=== PATIENT | female | born 1995 | race American Indian/Alaskan Native ===

== ENCOUNTER 2018-05-18 07:57 | Observation (INO) | payer SELFPAY ==
--- NOTE | 2018-05-17 20:50 | Emergency Department Report ---
HPI - General Chief Complaint: Abdominal Pain Time Seen by Provider: 05/17/18 20:35 - HPI HPI: Room 6 The patient is a 22-year-old female presenting with a chief complaint of abdominal pain. Probably 45 minutes prior to arrival patient had sudden onset of left flank and left lower quadrant abdominal pain. Patient is to nausea but denies vomiting. Patient denies dysuria or fever. Patient denies any previous episodes of the same. The patient states she has not had her cycle and approximately 3 months she is normally regular. Location: [See above] Duration: [See above] Quality: Pain Severity: Severe Modifying factors: [see above] Context: [see above] Mode of transportation: [not driving] ED Past Medical Hx - Past Medical History Previous Medical History?: No - Surgical History Past Surgical History?: No - Family History Family history: no significant - Social History Smoking Status: Never Smoker Substance Use Type: None (denies illicit drug use), Alcohol (occasional) ED Review of Systems ROS: Stated complaint: ABD PAIN Other details as noted in HPI Constitutional: denies: fever Eyes: denies: eye pain ENT: denies: throat pain Respiratory: no symptoms reported Cardiovascular: denies: chest pain Endocrine: no symptoms reported Gastrointestinal: abdominal pain, nausea Genitourinary: abnormal menses (missed cycle). denies: dysuria Musculoskeletal: back pain Neurological: denies: headache Physical Exam - Physical Exam Vital Signs: Vital Signs 05/17/18 20:20 Temperature 97.7 F Pulse Rate 70 Respiratory 20 Rate Blood Pressure 105/59 O2 Sat by Pulse 100 Oximetry Physical Exam: GENERAL: The patient is well-developed well-nourished female lying on stretcher and right lateral decubitus position appearing to be in significant pain. [] HEENT: Normocephalic. Atraumatic. Extraocular motions are intact. Patient has moist mucous membranes. NECK: Supple. Trachea midline CHEST/LUNGS: Clear to auscultation. There is no respiratory distress noted. HEART/CARDIOVASCULAR: Regular. There is no tachycardia. There is no gallop rub or murmur. ABDOMEN: Abdomen is soft, with diffuse tenderness to palpation. There is no guarding. Patient has normal bowel sounds. There is no abdominal distention. SKIN: There is no rash. There is no edema. There is no diaphoresis. NEURO: The patient is awake, alert, and oriented. The patient is cooperative. The patient has normal speech MUSCULOSKELETAL: There is left CVA tenderness. There is no evidence of acute injury. ED Course Vital Signs 05/17/18 20:20 Temperature 97.7 F Pulse Rate 70 Respiratory 20 Rate Blood Pressure 105/59 O2 Sat by Pulse 100 Oximetry - Reevaluation(s) Reevaluation #1: 05/17/18 21:28 Patient states she feels great now status post medication. Patient states she is developing a rash on her left arm at the IV site. Appears to be a local reaction. Clint administer Benadryl - Consultations Consultation #1: 05/18/18 00:38 [employer] WORK[employer] paged 05/18/18 01:[address] Marrero- plan to take to OR ED Medical Decision Making - Lab Data Result diagrams: 05/17/18 20:49 05/17/18 20:49 Laboratory Tests 05/17/18 05/17/18 05/17/18 20:49 20:49 20:49 WBC 9.5 RBC 4.25 Hgb 12.5 Hct 38.2 MCV 90 MCH 29 MCHC 33 RDW 13.0 L Plt Count 159 Lymph % (Auto) 28.2 Crane % (Auto) 7.1 Eos % (Auto) 0.8 Baso % (Auto) 0.9 Lymph # 2.7 Crane # 0.7 Eos # 0.1 Baso # 0.1 Seg Neutrophils % 63.0 Seg Neutrophils # 6.0 PT TNR INR TNR APTT TNR Sodium 134 L Potassium 4.1 Chloride 98.6 Carbon Dioxide 18 L Anion Gap 22 BUN 9 Creatinine 0.8 Estimated GFR > 60 BUN/Creatinine Ratio 11 Glucose 109 H Calcium 9.1 Total Bilirubin 0.20 AST 21 ALT 9 Alkaline Phosphatase 84 Total Protein 7.3 Albumin 4.2 Albumin/Globulin Ratio 1.4 HCG, Quant Urine Color Urine Turbidity Urine pH Ur Specific [place] Urine Protein Urine Glucose (UA) Urine Ketones Urine Blood Urine Nitrite Urine Bilirubin Urine Urobilinogen Ur Leukocyte Esterase Urine WBC (Auto) Urine RBC (Auto) U Epithel Cells (Auto) Urine Mucus Urine HCG, Qual 05/17/18 05/17/18 05/17/18 20:49 21:40 21:49 WBC RBC Hgb Hct MCV MCH MCHC RDW Plt Count Lymph % (Auto) Crane % (Auto) Eos % (Auto) Baso % (Auto) Lymph # Cr[place] # Eos # Baso # Seg Neutrophils % Seg Neutrophils # PT 15.0 H INR 1.14 H APTT 23.0 L Sodium Potassium Chloride Carbon Dioxide Anion Gap BUN Creatinine Estimated GFR BUN/Creatinine Ratio Glucose Calcium Total Bilirubin AST ALT Alkaline Phosphatase Total Protein Albumin Albumin/Globulin Ratio HCG, Quant 5055 H Urine Color Yellow Urine Turbidity Clear Urine pH 8.0 H Ur Specific [place] 1.024 Urine Protein 100 mg/dl Urine Glucose (UA) Neg Urine Ketones 20 Urine Blood Neg Urine Nitrite Neg Urine Bilirubin Neg Urine Urobilinogen 2.0 Ur Leukocyte Esterase Sm Urine WBC (Auto) 5.0 Urine RBC (Auto) 1.0 U Epithel Cells (Auto) 12.0 Urine Mucus Few Urine HCG, Qual Positive A - Radiology Data Radiology results: report reviewed (left renal ultrasound, pelvic ultrasound), image reviewed (left renal ultrasound, pelvic ultrasound) [facility] [address] [place] [address] Ultrasound Report Signed Patient: VIOLA LYNN MR#: [id number] : 1995 Acct:[id number] Age/Sex: 22 / F ADM Date: 05/17/18 Loc: ED Attending Dr: Ordering Physician: JANETTE ARMENTA MD Date of Service: 05/17/18 Procedure(s): US renal LT Accession Number(s): [id number] cc: JANETTE ARMENTA MD FINAL REPORT EXAM: US RENAL LT HISTORY: left flank pain COMPARISON: None available. TECHNIQUE: Several real-time grayscale and color Doppler images were obtained. FINDINGS: Trace fluid at the margin of the spleen. Spleen measures 6.8 centimeters in length within normal limits. Left kidney measures 8.9 x 3.3 x 3.5 centimeters. Cortex 1.2 centimeters in thickness. There is vascular flow to the left kidney. No gross focal renal lesion or hydronephrosis. Punctate nonobstructive renal calculus could be obscured by renal sinus fat. Images of the right kidney not obtained. IMPRESSION: No gross focal renal lesion or hydronephrosis on the left. Trace fluid at the margin of the spleen. Transcribed By: LMA Dictated By: GARRISON GODINEZ MD Electronically Authenticated By: GARRISON GODINEZ MD Signed Date/Time: 05/18/1830 DD/ TD/TT: 05/18/1833 [facility] [address] [place] [address] Ultrasound Report Signed Patient: VIOLA LYNN MR#: [id number] : 1995 Acct:[id number] Age/Sex: 22 / F ADM Date: 05/17/18 Loc: ED Attending Dr: Ordering Physician: JANETTE ARMENTA MD Date of Service: 05/17/18 Procedure(s): US OB <= 14 weeks fetus Accession Number(s): [id number] cc: JANETTE ARMENTA MD FINAL REPORT EXAM: US OB lt; = 14 WEEKS FETUS HISTORY: pelvic pain, COMPARISON: None available. TECHNIQUE: Several real-time grayscale and color Doppler images were obtained. Transabdominal exam. Patient declined transvaginal exam. FINDINGS: The uterus measures 8.4 x 5.2 by 4.8 centimeters. Endometrial stripe measures 4 millimeters. No IUP demonstrated. In the left adnexal region there is a soft tissue mass measuring 6.6 x 5.2 x 5.8 centimeters. There is some peripheral vascularity. Left ovary is not visualized separately. Given the patient's history of quantitative beta HCG of grade 2 2000, findings are concerning for ectopic . Small amount of fluid in the pelvis which appears slightly heterogeneous. This is concerning for hemorrhagic fluid and possible rupture left ectopic . Right ovary is not visualized. IMPRESSION: Findings concerning for left adnexal ectopic with possible rupture. Small amount of heterogeneous fluid in the pelvis which may be hemorrhagic. No IUP demonstrated. Findings discussed with Dr. Armenta on May 18, 2018 at 0037 hours EST. Transcribed By: LMA Dictated By: GARRISON GODINEZ MD Electronically Authenticated By: GARRISON GODINEZ MD Signed Date/Time: 05/18/1839 DD/ TD/TT: 05/18/1840 - Differential Diagnosis renal colic, ectopic Critical care attestation.: If time is entered above; I have spent that time in minutes in the direct care of this critically ill patient, excluding procedure time. ED Disposition Clinical Impression: Acute abdominal pain, Ruptured ectopic Disposition: OP ADMIT IP TO THIS HOSP Is pt being admited?: Yes Does the pt Need Aspirin: No Condition: Serious Instructions: Abdominal Pain (ED) Referrals: DORENE MCMAHAN MD [Primary Care Provider] - 3-5 Days Time of Disposition: 01:19 (awaiting OR)
[2018-05-17 21:14] LABS: Basophils # (Auto) 0.1 K/mm3 (0.0-0.1); Basophils % (Auto) 0.9 % (0.0-1.8); Eosinophils # (Auto) 0.1 K/mm3 (0.0-0.4); Eosinophils % (Auto) 0.8 % (0.0-4.3); Hematocrit 38.2 % (30.3-42.9); Hemoglobin 12.5 gm/dl (10.1-14.3); Lymphocytes # (Auto) 2.7 K/mm3 (1.2-5.4); Lymphocytes % (Auto) 28.2 % (13.4-35.0); Mean Corpuscular HGB Conc 33 % (30-34); Mean Corpuscular Volume 90 fl (79-97); Monocytes # (Auto) 0.7 K/mm3 (0.0-0.8); Monocytes % (Auto) 7.1 % (0.0-7.3); Red Blood Count 4.25 M/mm3 (3.65-5.03)
[2018-05-17 21:18] LABS: Platelet Count 159 K/mm3 (140-440)
[2018-05-17 21:36] LABS: Alanine Aminotransferase 9 units/L (7-56); Albumin 4.2 g/dL (3.9-5); BUN/Creatinine Ratio 11; Blood Urea Nitrogen 9 mg/dL (7-17); Calcium 9.1 mg/dL (8.4-10.2); Hemolysis Index 36
[2018-05-17 21:39] LABS: INR TNR (0.87-1.13); Partial Thromboplastin Time TNR Sec. (24.2-36.6)
[2018-05-17 21:54] LABS: Bilirubin,Urine NEG (Negative); Blood,Urine NEG (Negative); Color,Urine Yellow (Yellow); Mucus,Urine FEW /HPF
[2018-05-17 22:06] LABS: HCG Qualitative,Urine Positive (Negative)
[2018-05-17 22:11] LABS: INR 1.14 (0.87-1.13)
--- NOTE | 2018-05-18 00:31 | Ultrasound Report ---
FINAL REPORT EXAM: US RENAL LT HISTORY: left flank pain COMPARISON: None available. TECHNIQUE: Several real-time grayscale and color Doppler images were obtained. FINDINGS: Trace fluid at the margin of the spleen. Spleen measures 6.8 centimeters in length within normal limi ts. Left kidney measures 8.9 x 3.3 x 3.5 centimeters. Cortex 1.2 centimeters in thickness. There is vascu lar flow to the left kidney. No gross focal renal lesion or hydronephrosis. Punctate nonobstructive r enal calculus could be obscured by renal sinus fat. Images of the right kidney not obtained. IMPRESSION: No gross focal renal lesion or hydronephrosis on the left. Trace fluid at the margin of the spleen.
--- NOTE | 2018-05-18 00:40 | Ultrasound Report ---
FINAL REPORT EXAM: US OB <= 14 WEEKS FETUS HISTORY: pelvic pain, COMPARISON: None available. TECHNIQUE: Several real-time grayscale and color Doppler images were obtained. Transabdominal exam. Patient declined transvaginal exam. FINDINGS: The uterus measures 8.4 x 5.2 by 4.8 centimeters. Endometrial stripe measures 4 millimeters. No IUP d emonstrated. In the left adnexal region there is a soft tissue mass measuring 6.6 x 5.2 x 5.8 centimeters. There i s some peripheral vascularity. Left ovary is not visualized separately. Given the patient's history o f quantitative beta HCG of grade 2 2000, findings are concerning for ectopic . Small amount of fluid in the pelvis which appears slightly heterogeneous. This is concerning for hemorrhagic fluid and possible rupture left ectopic . Right ovary is not visualized. IMPRESSION: Findings concerning for left adnexal ectopic with possible rupture. Small amount of heterog eneous fluid in the pelvis which may be hemorrhagic. No IUP demonstrated. Findings discussed with Dr. Gonsalez on May 18, 2018 at 0037 hours EST.
[2018-05-18 02:44] LABS: Basophils % (Auto) 0.3 % (0.0-1.8); Hematocrit 26.9 % (30.3-42.9); Hemoglobin 8.7 gm/dl (10.1-14.3); Lymphocytes # (Auto) 1.4 K/mm3 (1.2-5.4); Mean Corpuscular HGB Conc 32 % (30-34); Mean Corpuscular Volume 90 fl (79-97); Monocytes # (Auto) 0.7 K/mm3 (0.0-0.8); Monocytes % (Auto) 5.3 % (0.0-7.3); Platelet Count 261 K/mm3 (140-440); Red Blood Count 2.99 M/mm3 (3.65-5.03); Red Cell Distribution Width 12.9 % (13.2-15.2)
--- NOTE | 2018-05-18 03:11 | History and Physical Report ---
History of Present Illness Chief complaint: abdominal pain History of present illness: 22yo presents to the ER complaining of LLQ pain found to have 6.6cm left adnexal mass and free fluid suspicious for ruptured ectopic . During observation in the emergency room she became hypotensive SBP 90s. Decision made to proceed to diagnostiic laparoscopy for excision of ectopic based on clinical and laboratory findings. . Past History Past Surgical History: no surgical history Social history: no significant social history - Obstetrical History : 2 Number of Living Children: 1 Medications and Allergies Allergies Allergy/AdvReac Type Severity Reaction Status Date / Time No Known Allergies Allergy Verified 05/17/18 20:19 Active Meds: Active Medications Sodium Chloride (Nacl 0.9% 1000 Ml) 1,000 mls @ 999 mls/hr IV ONCE ONE Stop: 05/18/18 03:58 Last Admin: 05/18/18 03:00 Dose: 999 mls/hr Documented by: Sodium Chloride (Nacl 0.9% 1000 Ml) 1,000 mls @ 999 mls/hr IV ONCE ONE Stop: 05/18/18 04:00 Last Admin: 05/18/18 03:01 Dose: 999 mls/hr Documented by: - Vital Signs Vital signs: Vital Signs Temp Pulse Resp BP Pulse Ox 97.7 F 70 20 105/59 100 05/17/18 20:20 05/17/18 20:20 05/17/18 20:20 05/17/18 20:20 05/17/18 20:20 Temp Pulse Resp BP Pulse Ox 97.7 F 88 15 106/58 100 05/17/18 20:20 05/18/18 02:30 05/18/18 02:30 05/18/18 02:30 05/18/18 02:30 Results Result Diagrams: 05/18/18 02:32 05/17/18 20:49 Abnormal lab results 05/17/18 05/17/18 05/17/18 Range/Units 20:49 20:49 20:49 WBC (4.5-11.0) K/mm3 RBC (3.65-5.03) M/mm3 Hgb (10.1-14.3) gm/dl Hct (30.3-42.9) % RDW 13.0 L (13.2-15.2) % Lymph % (Auto) (13.4-35.0) % Seg Neutrophils % (40.0-70.0) % Seg Neutrophils # (1.8-7.7) K/mm3 PT (12.2-14.9) Sec. INR (0.87-1.13) APTT (24.2-36.6) Sec. Sodium 134 L (137-145) mmol/L Carbon Dioxide 18 L (22-30) mmol/L Glucose 109 H (65-100) mg/dL HCG, Quant 5055 H (0-4) mIU/mL Urine pH (5.0-7.0) Urine HCG, Qual (Negative) Crossmatch 05/17/18 05/17/18 05/18/18 Range/Units 21:40 21:49 01:10 WBC (4.5-11.0) K/mm3 RBC (3.65-5.03) M/mm3 Hgb (10.1-14.3) gm/dl Hct (30.3-42.9) % RDW (13.2-15.2) % Lymph % (Auto) (13.4-35.0) % Seg Neutrophils % (40.0-70.0) % Seg Neutrophils # (1.8-7.7) K/mm3 PT 15.0 H (12.2-14.9) Sec. INR 1.14 H (0.87-1.13) APTT 23.0 L (24.2-36.6) Sec. Sodium (137-145) mmol/L Carbon Dioxide (22-30) mmol/L Glucose (65-100) mg/dL HCG, Quant (0-4) mIU/mL Urine pH 8.0 H (5.0-7.0) Urine HCG, Qual Positive A (Negative) Crossmatch See Detail 05/18/18 Range/Units 02:32 WBC 12.7 H (4.5-11.0) K/mm3 RBC 2.99 L (3.65-5.03) M/mm3 Hgb 8.7 L D (10.1-14.3) gm/dl Hct 26.9 L D (30.3-42.9) % RDW 12.9 L (13.2-15.2) % Lymph % (Auto) 11.0 L (13.4-35.0) % Seg Neutrophils % 83.4 H (40.0-70.0) % Seg Neutrophils # 10.6 H (1.8-7.7) K/mm3 PT (12.2-14.9) Sec. INR (0.87-1.13) APTT (24.2-36.6) Sec. Sodium (137-145) mmol/L Carbon Dioxide (22-30) mmol/L Glucose (65-100) mg/dL HCG, Quant (0-4) mIU/mL Urine pH (5.0-7.0) Urine HCG, Qual (Negative) Crossmatch All other labs normal. Assessment and Plan - Patient Problems (1) Ruptured ectopic Current Visit: Yes Status: Acute Plan to address problem: 2 large bore IV needles Type & Cross 2 units packed red blood cells Ancef IV Proceed to diagnostic laparoscopy to control bleeding, excise of ectopic pregnany. Recommendation discussed with patient. Risks, benefits and alternates to treatment discussed. Informed consent signed. Recommend surgery due to ruptured ectopic and worsening anemia indicative of pelvic hemorrhage.. Proceed to OR.
--- NOTE | 2018-05-18 06:38 | Operative Report ---
Operative Report Operative Report: PRE-OP Diagnosis 1. Ruptured ectopic 2. Anemia POST-OP Diagnosis 1. Ruptured ectopic 2. Anemia 3. Hemoperitoneum 4. Posterior uterine fibroid (small ~1cm) 5. Hydrosalpinx of right fallopian tube 6. Left paratubal simple cyst Procedure 1. Diagnostic laparoscopy converted to Exploratory laparatomy 2. Left partial salpingectomy Surgeon: Dr. Radha Russell Findings 1. Anteverted 8wk uterus 2. Left adnexal mass concerning for ectopic . 3. Hemoperitoneum originating from left fallopian tube. 4. Posterior uterine fibroid 5. Normal bilateral ovaries 6. Paratubal cyst adhered to left fimbriated end of fallopian tube, both adhered to left ovary. (remaining in situ) I/O EBL 600ml Hemoperitoneum 600m (clots and blood) UOP 1100ml clear IVF: 4000ml LR Intra-op Transfusion: 2 units pRBCs. Specimens removed 1. Left fallopian tube, pelvic mass, Anesthesia: General DISPOSITION: Patient extubated and transported to OR in stable condition. INDICTATIONS: 22yo presents to ER with abdominal pain and found to have ruptured left ectopic on ultrasound. She became hypotensive and hemoglobin noted to drop 12-->8 in the ER. The recommendation to proceed to surgical management of ruptured ectopic was discussed with the patient. The risks including but not limited to bleeding, infection, injury to surrounding organs such as bowel, bladder, blood vessels, possible uterine perforation and potential reduced fertility were discussed. The patient was told that one ectopic increases the risk of future ectopic pregnancies. Alternatives and benefits were discussed and informed consent signed. PROCEDURE: The patient was taken to the Main OR in stable condition and placed in the supine position. In anticipation of a possible exploratory laparotomy the patient received Ancef 2g IV. Adequate anesthesia was achieved. SCDs were placed. She was placed in the dorsal lithotomy position in Alan stirrups and prepped and draped in a sterile fashion. A time out was done. A tracy catheter was placed. Attention was turned to the perineum and a sterile speculum was placed per vagina. A single-toothed tenaculum was placed on the anterior lip of the cervix and a balloon uterine manipulator was placed into the uterus. The speculum and tenaculum were removed. Attention was then turned to the abdomen where an infraumbilical incision was made with the scalpel. A 5mm Applied FiOs trocar was then placed through the incision under direct visualization. The CO2 gas flow was placed on 1 as the trocar traversed the tissues into the abdominal cavity. Entry into the peritoneum was achieved with opening pressure of 5 mmHg. The abdomen was insufflated with adequate CO2 gas. The pelvic cavity was noted to be filled with large organized clots. Evidence of active bleeding was noted with bright red blood collecting above the clots. A small LLQ incision was made in the skin and 5mm trocar placed to aid in suction of the hemoperitoneum. Due to the large volume of organized clots and limitation of the suction gift packer to efficiently reduce and remove the clots in the face of active bleeding, the decision was made to convert case to an exploratory laparotomy. Both trocar sites were closed with 4-0 Vicryl. A Pfannesteil incision was made in the skin with the scalpel and carried down to the fascia. The fascia was incised at the midline and incision extended laterally. The fascia was dissected off the rectus muscle at the caudal and cranial end. Entry into the peritoneum was achieved and the incision was extended. An Joselo-O rectractor was placed intraabdominally. The uterine manipulator was removed from the uterus. The right tube cornua was noted to have a hydrosalpinx. The ectopic was noted adhered to the left tube. Left ectopic and source of rupture identified. Cruciate opening made in the left mesosalpinx. Radha clamp placed between left ovary and fallopian tube. Left tube grasped with the Babocks and salpingectomy completed using Ligasure [place] bipolar cautery device. Tubal pedicle noted to be hemostatic. Of note the left fimbriated end of the tube is adhered to the left ovary with a paratubal cyst. Of note, the left fallopian tube was left in tact. The pedicle was noted to be hemostatic. The abdomen was irrigated with normal saline. Any additional peritoneal clots were removed. The peritoneum and rectus muscle was repaired with 2-0 Vicryl. The fascia was closed with 0-Vicryl. The subcutaneous layer was reapproximated with 2-0 Vicryl and the skin was closed with 4-0 Vicryl. I was present and scrubbed for the entire procedure. All counts were correct x 3. Patient was awakened from anesthesia in stable condition and transported to the PACU.
[~2018-05-18 07:57] MED LIST: ANCEF ONE; ANCEF/STERILE WATER 2 GM/20 ML 2 GM/20 ML SYRINGE IV NR; BENADRYL IV ONE; BENADRYL ONE; BLOXIVERZ ONE; DECADRON ONE; DILAUDID ONE; DIPRIVAN 10 MG/ML IV ONE; IBUPROFEN PO PRN; MARCAINE 0.25% INFILTRATI ONE; NACL 0.9% 1000 ML 1,000 ML IV ONE; NACL 0.9% 500 ML 500 ML IV ONE; REGLAN IV ONE; ROBINUL ONE; SUBLIMAZE IV ONE; SUBLIMAZE ONE; TORADOL IV ONE; TORADOL ONE; TYLENOL PO PRN; ZEMURON IV ONE; ZOFRAN IV ONE; ZOFRAN ONE
[2018-05-18] MEDS ORDERED: VASELINE TP ONE (08:45)
[2018-05-18] MEDS: PERCOCET 5/325 PO PRN ×2 (09:35→19:12)
--- NOTE | 2018-05-18 10:49 | Event Note ---
Patient seen and examined post-operatively. She states she is stiff but pain is controlled. Tracy catheter in place. She has tolerated clear liquids. Temp Pulse Resp BP Pulse Ox 97 F L 79 12 110/58 100 05/18/18 06:15 05/18/18 07:15 05/18/18 07:15 05/18/18 07:15 05/18/18 07:15 Incisions (3) Wound dressings clean A 22yo Ruptured ectopic s/p diagnostic lap convereted to exp lap Evaculation of hemoperitoneum Left salpingectomy s/p 2units pRBCs P 1. D/C tracy catheter at noon 2. Encourage ambulation 3. Incentive Spirometer 4. Await bowel status return 5. Draw labs - repeat betahCG, post-transfusion H/H, coags
[2018-05-18] MEDS ORDERED: SODIUM CHLORIDE FLUSH SYRINGE 10 ML IV PRN (11:00)
[2018-05-18] MEDS ORDERED: DILAUDID IV SCH (11:00)
[2018-05-18] MEDS ORDERED: NARCAN 0.4 MG/1 ML IV PRN (11:30)
[2018-05-18] MEDS ORDERED: MYLICON PO PRN (11:30)
[2018-05-18 12:26] LABS: Hematocrit 30.9 % (30.3-42.9); Hemoglobin 10.4 gm/dl (10.1-14.3)
[2018-05-18] MEDS ORDERED: D5LR 1,000 ML IV ONE (12:28)
[2018-05-18] MEDS: DILAUDID IV PRN ×2 (12:30→20:58)
[2018-05-18 12:50] LABS: INR 1.24 (0.87-1.13)
[2018-05-18] MEDS ORDERED: D5LR 1,000 ML IV SCH (13:00)
[2018-05-18] MEDS ORDERED: MILK OF MAGNESIA PO PRN (22:00)
--- NOTE | 2018-05-19 13:47 | Progress Note ---
Assessment and Plan - Patient Problems (1) Ruptured ectopic Current Visit: Yes Status: Acute (2) H/O unilateral salpingectomy Current Visit: Yes Status: Acute (3) Hemoperitoneum Current Visit: Yes Status: Acute (4) H/O exploratory laparotomy Current Visit: Yes Status: Acute Plan to address problem: Continue postop care. OB to ambulate. August d/c home in AM. Subjective - Subjective Date of service: 05/19/18 Principal diagnosis: S/P expl lap for ruptured ectopic. Interval history: Patient is S/P diagnostic laparoscopy converted to exploratory laparotomy, POD#1. She also receievd 2 units PRBCs. Her current Hb is 10. She denies any dizziness or palpitation. She passed flatus. She is tolerating regular diet well. Objective - Vital Signs Latest vital signs: Vital Signs Temp Pulse Resp BP BP Pulse Ox 05/19/18 09:40 98.8 F 81 18 104/60 100 05/19/18 05:37 98.4 F 95 H 18 105/61 99 05/18/18 23:51 98.6 F 74 18 105/45 100 05/18/18 20:53 98.6 F 92 H 18 106/55 100 05/18/18 15:25 98.7 F 88 20 101/60 Intake and Output 05/18/18 05/19/18 05/19/18 23:59 07:59 15:59 Intake Total 120 600 Output Total 1000 300 Balance -880 -300 600 Intake: Oral 120 600 Output: Urine 1000 300 Void 1000 300 Other: Total, Intake Amount 120 120 Total, Output Amount 200 300 Voiding Method Toilet # Voids Void 2 1 - Exam Cardiovascular: Present: Normal S1, Normal S2 Lungs: Present: Clear to auscultation Vulva: both: normal Deep Tendon Reflex Grade: Normal +2 - Labs Labs: Abnormal lab results 05/18/18 Range/Units 01:10 Crossmatch See Detail
[2018-05-19] MEDS: PERCOCET 5/325 PO PRN ×2 (17:46→23:12)
[2018-05-20] MEDS: PERCOCET 5/325 PO PRN (05:32)
[2018-05-20 10:24] LABS: INR 1.09 (0.87-1.13)
[2018-05-20 10:25] LABS: Partial Thromboplastin Time 29.7 Sec. (24.2-36.6)
--- NOTE | 2018-05-20 13:36 | Discharge Summary ---
Providers - Providers Date of Admission: 05/18/18 08:12 Attending physician: LANCE ESCOBAR Primary care physician: DORENE MCMAHAN Hospitalization Reason for admission: other (abdominal pain) Delivery: other Procedure: other (1) diagnostic laparoscopy converted to exploratory laparotomy 2) partial left salpingectomy 3) evacuation of hemoperitoneium) Discharge diagnosis: other (ectopic ) Hospital course: 22yo presents w abdominal pain found to have ruptured ectopic tubal . She underwent a 1) diagnostic laparoscopy converted to exploratory laparotomy 2) partial left salpingectomy 3) evacuation of hemoperitoneium. The laparoscopy was converted due to large volume of intraabdominal hemorrhage ~1L of clots and blood. On POD#2 she was ambulating without difficulty, passing flatus, tolerating PO and urinating without difficulty. Her pathology reveals trophoblastic tissue and left benign fallopian tube. Her BCHG trended down 5055-->730K post-operatively She was discharged home in stable condition to return to clinic weekly for repeat betHCG at [facility]. Condition at discharge: Stable Disposition: DC- TO HOME OR SELFCARE - Discharge Diagnoses (1) Ruptured ectopic Status: Acute Plan - Discharge Medications Prescriptions: RX: Ferrous Sulfate [Feosol 325 MG tab] 325 mg PO BID 30 Days #60 tablet oxyCODONE /ACETAMINOPHEN [Percocet 5/325] 1 tab PO Q4HR PRN 14 Days #30 tab PRN Reason: Pain , Severe (7-10) - Provider Discharge Summary Activity: no sex for 6 weeks, no heavy lifting 4 weeks, no strenuous exercise Additional instructions: [] Smoking cessation referral if applicable(refer to patient education folder for contact #) [] Refer to [facility] Booklet Call your doctor immediately for: * Fever > 100.5 * Heavy vaginal bleeding ( >1 pad per hour) * Severe persistent headache * Shortness of breath * Reddened, hot, painful area to leg or breast * Drainage or odor from incision. * Keep incision clean and dry at all times and follow doctor's instructions regarding bathing/showering Return to clinic with Dr. Escobar weekly for serial betaHCG labs. - Follow up plan Follow up: DORENE MCMAHAN MD [Primary Care Provider] - 3-5 Days
[2018-05-22 11:24] VITALS: BP 116/74
== END 2018-05-20 16:00 | disposition home or self-care (01) ==
LOC: OR 07:57 → OB 08:12
PROVIDERS: ADMIT Obstetrics & Gynecology; ATTEND Obstetrics & Gynecology
DX: O00.90 Unspecified ectopic pregnancy without intrauterine pregnancy (principal); O99.019 Anemia complicating pregnancy, unspecified trimester; O34.10 Maternal care for benign tumor of corpus uteri, unspecified trimester
CPT/HCPCS: 36415; 36430; 59151; 76775; 76801; 80053; 81001; 81025; 84702; 85014; 85018; 85025; 85610; 85730; 86850; 86900; 86901; 86920; 88305; 96374; 96375; 96376; 99285; G0378; J0690; J1100; J1170; J1200; J1885; J2405; J2704; J2710; J2765; J3010; J7030; J7121; P9016; 88302; A6250; J9260